=== PATIENT | female | born 1990 | race Caucasian/White ===

== ENCOUNTER → 2021-08-26 | Outpatient (CLI) | payer OTHER, SELFPAY ==
[2021-08-29 22:07] LABS: Chlamydia By Nucleic Acid AMP Negative (Negative)
[2021-08-29 23:07] LABS: Gonococcus By Nucleic Acid AMP Negative (Negative)
== END | disposition home or self-care (01) ==
LOC: LABSPEC 15:20
PROVIDERS: Visit Provider Student in an Organized Health Care Education/Training Program
DX: Z11.3 Encounter for screening for infections with a predominantly sexual mode of transmission (principal)
CPT/HCPCS: 87491; 87591

== ENCOUNTER 2021-09-04 20:19 | Observation (INO) | payer OTHER, SELFPAY ==
[2021-09-04 20:19] VITALS: BMI 23.6
[2021-09-04] MEDS: HYDROmorphone 0.5 MG/0.5 ML SYRINGE IV (20:38)
[2021-09-04] MEDS: Ondansetron 4 MG/2 ML Vial IV (20:38)
[2021-09-04 21:00] VITALS: BP 104/61; BP 105/54; BP 98/76; PULSE 75; PULSE 76; PULSE 78; RESP 18; TEMP 36.9; O2SAT 97
[2021-09-04] MEDS: Famotidine 200 MG/20 ML MDV 20 MG in 0.9% Normal Saline (Pres. free 8 ML 300 MG IV (21:41)
[2021-09-04] MEDS: Lactated Ringers 1,000 ML 125 ML IV (21:41)
[2021-09-04 21:43] LABS: Hematocrit 24.2 % (37-47); Hemoglobin 8.2 g/dL (12.0-15.0)
[2021-09-04 22:15] LABS: International Normalized Ratio 1.2; Partial Thromboplast Time 24.1 Seconds (24.1-36.2); Prothrombin Time (Protime)PT. 14.4 SECONDS (11.7-14.9)
[2021-09-04 22:16] LABS: Fibrinogen 214 mg/dl (203-444)
--- NOTE | 2021-09-04 22:26 | PCM.HP.STD ---
HPI - General General Date of Admission: 09/04/21 HPI Narrative SHENG CASEY, is a 30 F LMP 08/18/21 admitted with rupture hemorrhagia ovarian cyst. She reports sudden onset severe abdominal pain this morning. She went to [facility] and CT and pelvic US suggested a complex right ovarian cyst and moderate free fluid in the pelvis. UPT there was negative. Her Hgb had downtrended from 10.7 to 8.6 over approximately 5 hours and she was sent here for direct admission. Reports pain 10/10, sharp, mildly alleviated with IV pain medication. Pain radiates to her ribs when she lies flat and is worse with movement and deep breathing. Denies prior history of ovarian cysts or bleeding issues. She was scheduled to see Dr. Mariano Lemos tomorrow for IUD removal due to side effects since placement on 08/26/21. [facility] Medical History (Updated 09/04/21 @ 22:[address] Lory Pan MD) Anxiety Back pain due to injury Depression Injury of head and neck Smoker Syncope Home Medications Liletta 09/04/21 [History Last Taken Unknown] Allergy/AdvReac Type Severity Reaction Status Date / Time No Known Allergies Allergy Verified 09/04/21 20:28 Surgical History (Updated 09/04/21 @ 22:[address] Lory Pan MD) Previous section Social History (Updated 09/04/21 @ 22:[address] Lory Pan MD) number of children: 2 Smoking Status: Current every day smoker tobacco type: e-cigarettes Electronic Cigarette Use: with nicotine details: denies substance use type: does not use ROS Constitutional Constitutional: Reports fatigue; Denies headache(s) Cardiovascular Cardiovascular: Denies chest pain, dyspnea, nausea, syncope or vomiting Respiratory/Chest Respiratory/Chest: Reports pain on inspiration; Denies dyspnea Gastrointestinal Gastrointestinal: Reports abdominal pain and bloating; Denies nausea or vomiting Genitourinary Genitourinary: Reports abdominal discomfort and difficulty urinating Neurologic Neurologic: Reports dizziness Vital Signs Vital Signs Vital Signs: 09/04/21 21:00 Temperature 98.4 F Temperature Source Oral Pulse Rate 78 Pulse Rate [Lying] 78 Pulse Rate [Sitting (for 1 minute prior to obtaining)] 75 Pulse Rate [Standing (for 1 minute prior to obtaining)] 76 Respiratory Rate 18 Blood Pressure 104/61 Blood Pressure [Lying] 104/61 Blood Pressure [Sitting (for 1 minute prior to obtaining)] 98/76 Blood Pressure [Standing (for 1 minute prior to obtaining)] 105/54 L Blood Pressure Mean 75 Blood Pressure Mean [Lying] 75 Blood Pressure Mean [Sitting (for 1 minute prior to obtaining)] 83 Blood Pressure Mean [Standing (for 1 minute prior to obtaining)] 71 Blood Pressure Source Monitor Blood Pressure Position Supine Blood Pressure Location Right Arm Pulse Ox 97 Oxygen Delivery Method Room Air Weight Weight: 62.596 kg Body Mass Index (BMI) 23.6 Physical Exam Const alert and oriented x3 Constitutional Narrative: appears uncomfortable HEENT normocephalic Resp normal respiratory effort, normal air movement and clear to auscultation bilaterally Effort and Inspection: pain with movement Cardio regular rate, regular rhythm, S1 normal heart sound, S2 normal heart sound and no murmurs GI GI Narrative: normal to inspection, decreased bowel sounds, + rebounding and guarding tenderness with tenderness and dullness on percussion Extremity no calf tenderness and no pedal edema Neuro oriented x3 and moves all extremities Psych mental status grossly normal and cooperative Results Lab / Micro Data Result Diagrams: 09/04/21 21:30 Labs: Laboratory Results - last 24 hr 09/04/21 21:30: PT 14.4, INR 1.2, APTT 24.1, Fibrinogen 214 09/04/21 21:30: Crossmatch See Detail 09/04/21 21:30: Hgb 8.2 L, Hct 24.2 L Assessment & Plan Assessment/Plan (1) Right ovarian cyst: PLAN: Dfdx complex cyst, hemorrhagic cyst (2) Hemoperitoneum: PLAN: Pain management prn (3) Acute blood loss anemia: PLAN: OSH records reviewed Diastolic orthostasis, low fibrinogen and downtrending H/H T&C Advised diagnostic laparoscopy, evacuation of hemoperitoneum, possible right ovarian cystectomy or RSO. Will plan for IUD removal in OR since patient will miss her appointment tomorrow. Contraceptive counseling performed and she declines tubal sterilization. Procedural r/b/i/a reviewed. Blood transfusion acceptable to patient as indicated Patient given opportunity to ask questions and questions answered to her satisfaction. Proceed with surgery. Charges/Coding Visit Charges OBSV E&M: 25026 Initial observation care L3
[2021-09-04 22:53] VITALS: BMI 23.6
--- NOTE | 2021-09-04 23:18 | NURSING ---
jane in OR given report on pt
[2021-09-04] MEDS: Bupivacaine Mpf 0.5% 30 ML VIAL (23:55)
[2021-09-05] VITALS (9 sets, daily range): BP systolic 97–121; BP diastolic 51–88; PULSE 65–110; RESP 16–18; TEMP 36.6–37.4; O2SAT 96–100
[2021-09-05] MEDS: Lactated Ringers 1,000 ML 125 ML IV ×2 (00:16→03:20)
--- NOTE | 2021-09-05 00:51 | OP.PCM_ITS ---
Problems Associated Problem List Diagnoses (1) Acute blood loss anemia: (2) Hemoperitoneum: (3) Right ovarian cyst: Report of Operation Date of Procedure: 09/05/21 Pre-Operative Diagnosis: 1. Hemorrhagic right ovarian cyst 2. Anemia Post-Operative Diagnosis: 1. Hemorrhagic right ovarian cyst 2. Anemia Surgery/Procedure Performed:: Diagnostic laparoscopy Evacuation of hemoperitoneum Description of Surgical Findings:: normal uterus, bilateral tubes. Endometriosis implant on right ovary. Endometriosis also present in the right and left ovarian fossae. Surgeon: Lory Rushing video network engineer: Oxana Gutierrez Type of Anesthesia: General and Local Anesthesiologist: Bobbi Win Estimated Blood Loss (mL): 700 Fluids Replaced: 1000 ml Description of Procedure: Indications: 30-year-old 3 para 2-0-1-2 admitted with ruptured right hemorrhagic ovarian cyst with hemoperitoneum and downtrending H&H and low fibrinogen. She was advised to proceed with diagnostic laparoscopy with evacuation of hemoperitoneum and possible right ovarian cystectomy, possible RSO. Patient was counseled regarding procedural risks, benefits, indications and alternatives. Informed consent was obtained. Procedure: Patient was brought to the operating room and sinus performed. She is placed in the dorsal supine position and induced under general anesthesia and intubated. She was repositioned into dorsal lithotomy and the arms were tucked at her sides. An examination under anesthesia was performed. The perineum and abdomen were prepped and draped in sterile fashion. Patient was placed into high lithotomy, a Badillo catheter placed and a speculum was placed vaginally. The cervix was grasped at the anterior cervical lip using a single-tooth tenaculum and the uterus sounded to 9 cm. A ZUMI uterine manipulator was placed and secured. The single-tooth tenaculum was removed and the patient was placed into low lithotomy. Attention was turned to the abdomen. Half percent Marcaine was administered at the inferior umbilicus. An 1-1/2 cm incision was made at the inferior umbilicus with a scalpel. Veress needle was introduced with successful hanging drop test and no aspirate. The Veress needle was removed and a 12 mm trocar was introduced under laparoscopic guidance confirming entry into the abdominal cavity. There was abundant hemoperitoneum extending from the pelvis to the liver. Additional half percent Marcaine was injected in the left transverse abdominis plane under laparoscopic guidance. A left lower quadrant incision was made under transillumination and a 5 mm port was placed at the site. The abdomen and pelvis were suctioned and cleared of blood and clot using alternating Trendelenburg and reverse Trendelenburg until the pelvis could be adequately visualized. The right ovary appeared to be hemostatic. Few areas of endometriosis were noted including a small right ovarian implant and bilateral ovarian fossae endometriosis. There was good hemostasis the procedure was complete. The abdomen was desufflated and she was given several deep breaths to further desufflate the abdomen and trochars removed. The umbilical fascia was reapproximated using 0 Vicryl on a UR 6. The skin was reapproximated using a 4- 0 Monocryl by the PRESSURE DISPATCHER under my supervision at both sites. Steri-Strips and OpSite dressing were placed at each incisional wound. The patient was placed into high lithotomy and the uterine manipulator and Badillo catheter were removed. The tenaculum site at the cervix was hemostatic. The patient was placed into dorsal supine, awakened, extubated and will be transferred to the recovery room. Admit VTE Documentation VTE Present on Admission: No VTE Mechan Device Prophylaxis: SCD's and Knee High JARAD Hose VTE Pharm Prophylaxis ordered?: No Reason prophylaxis not ordered:: Treatment Not Indicated
[2021-09-05 01:24] LABS: Absolute Lymphocyte Count 1.86 X10^3/uL (0.83-4.51); Absolute Neutrophil Count 5.3 X10^3/uL (2.0-7.7); Basophil# 0.02 X10^3/uL; Basophil% 0.3 % (0-1); Eosinophil# 0.08 X10^3/uL; Hematocrit 24.8 % (37-47); Hemoglobin 8.4 g/dL (12.0-15.0); Lymphocyte # 1.86 X10^3/ul (0.83-4.51); Lymphocyte % 23.9 % (19-41); Mean Corp Hgb Conc 33.9 g/dL (32-36); Mean Corpuscular Hgb 30.5 pg (27.0-32.0); Mean Corpuscular Volume 90.2 fL (81-99); Mean Platelet Vol. 10.8 fl (6.2-12.0); Monocyte# 0.51 X10^3/uL; Monocyte% 6.6 % (0-10); NRBC Flagged by Analyzer 0 % (0-5); Neutrophil # 5.29 X10^3/uL (2.7-7.7); Neutrophil % 68.1 % (47-70); Platelet Count 181 K/mm3 (150-450); RBC Distribution Width CV 12.7 % (11.6-14.6); RBC Distribution Width SD 41.8 fl (35.1-43.9); Red Blood Count 2.75 M/mm3 (4.2-5.4); White Blood Count 7.8 K/mm3 (4.4-11.0)
[2021-09-05 01:37] LABS: EST Glomerular Filtration Rate 123 mL/min (>60); Est Glom Filt Rate - Afr Amer 148 mL/min (>60); Estimated Creatinine Clearance 117.31 ml/min
[2021-09-05] MEDS: Ketorolac 30 MG/ML Syringe IV ×2 (01:45→10:09)
[2021-09-05] MEDS: HYDROmorphone 0.5 MG/0.5 ML SYRINGE IV ×3 (02:26→06:44)
[2021-09-05] MEDS: 0.9% Saline Lock 10 ML Syringe IV ×3 (04:44→10:09)
--- NOTE | 2021-09-05 07:31 | DCINST_ITS ---
Discharge Instructions Diet Discharge Diet: No restrictions Activity Discharge Activity: Return to Normal Activity and May Shower May resume sexual activity in: - (2- 4 weeks) Lifting Restrictions: 10 lb Dressing / Incision Call your doctor if you observe: Using more than 1 pad per hour, Shortness of breath, Chest pain, Calf discomfort, Uncontrolled pain and - (Persistent or se franklin headache) Suture Line Care: Avoid Pulling/Pushing Remove Dressing in: 4 days Cleanse incision/area with: Soap & Water Follow Up Care Please Follow Up With: Mariano Lemos MD When: 2- 4 weeks Test Results: Test results from this visit will be discussed in further detail at your follow-up appointment, if applicable. Discharge Plan Admission Admit Date/Time: 09/04/21 19:04 Primary Reason for Your Visit: Rupture hemorrhagic cyst, IUD removal Attending Provider: Lory Rushing Instructions Patient Instructions: Anemia, ED Endometriosis Discharge Orders/Prescriptions Prescriptions: New ibuprofen 600 mg tablet 600 mg PO Q8H PRN (Reason: pain) Qty: 30 RF: 0 oxycodone 5 mg capsule 5 mg PO Q6H PRN (Reason: pain) 7 Days Qty: 20 RF: 0 Discontinued Liletta 52 mg implant RF: 0 Disposition Disposition (needs filled in before D/C Order can be placed): Home, Self Care
--- NOTE | 2021-09-05 07:47 | PCM.PN.OB ---
Subjective Subjective Feels better. Pain more manageable. Lightheadedness resolved. OOB and voiding difficulties resolved. Objective Data Objective Data Vital Signs: Vital Signs Temp Pulse Resp BP Pulse Ox 98.1 F 74 16 97/61 99 09/05/21 06:01 09/05/21 06:01 09/05/21 06:01 09/05/21 06:01 09/05/21 06:01 Oxygen Delivery Method Room Air Weight: 62.596 kg Body Mass Index (BMI) 23.6 Intake & Output: Intake and Output for Last 24 Hours 09/03/21 09/04/21 09/05/21 23:59 23:59 23:59 Intake Total 1383.33 / 1383.33 Output Total 400 / 400 Balance 983.33 / 983.33 Lab / Micro Data Result Diagrams: 09/05/21 01:17 09/05/21 01:17 Labs: Laboratory Results - last 24 hr 09/04/21 21:30: PT 14.4, INR 1.2, APTT 24.1, Fibrinogen 214 09/04/21 21:30: Blood Type A POSITIVE, Antibody Screen NEGATIVE, Crossmatch See Detail 09/04/21 21:30: Hgb 8.2 L, Hct 24.2 L 09/05/21 01:17: WBC 7.8, RBC 2.75 L, Hgb 8.4 L, Hct 24.8 L, MCV 90.2, MCH 30.5, MCHC 33.9, RDW Std Deviation 41.8, RDW Coeff of Paula 12.7, Plt Count 181, MPV 10.8, Immature Gran % (Auto) 0.100, Neut % (Auto) 68.1, Lymph % (Auto) 23.9, [place] % (Auto) 6.6, Eos % (Auto) 1.0, Baso % (Auto) 0.3, Absolute Neuts (auto) 5.3, Absolute Lymphs (auto) 1.86, Nucleated RBC % 0 09/05/21 01:17: Creatinine 0.60, Estim Creat Clear Calc 117.31, Est GFR (MDRD) Af Amer 148, Est GFR (MDRD) Non-Af 123 Micro: Microbiology 09/04/21 22:45 Nasal Secretion SARS-CoV-2 Antigen (Rapid) - Final Physical Exam Narrative GEN - NAD, AAO x 3 PULM - normal respiratory rate and rhythm CV - RRR ABD - soft, NT/ND, incisonal dressing c/d/i, bloating resolved EXT - no calf tenderness or LE edema Assessment & Plan (1) Right ovarian cyst: PLAN: Reviewed intraop findings (2) Hemoperitoneum: (3) Acute blood loss anemia: PLAN: f/u am CBC Plan for d/c home later today (4) Endometriosis determined by laparoscopy:
[2021-09-05 07:57] LABS: Absolute Lymphocyte Count 0.54 X10^3/uL (0.83-4.51); Absolute Neutrophil Count 5.5 X10^3/uL (2.0-7.7); Basophil# 0.01 X10^3/uL; Basophil% 0.2 % (0-1); Hematocrit 25.7 % (37-47); Hemoglobin 8.6 g/dL (12.0-15.0); Lymphocyte # 0.54 X10^3/ul (0.83-4.51); Lymphocyte % 8.9 % (19-41); Mean Corp Hgb Conc 33.5 g/dL (32-36); Mean Corpuscular Hgb 30.4 pg (27.0-32.0); Mean Corpuscular Volume 90.8 fL (81-99); Mean Platelet Vol. 10.6 fl (6.2-12.0); Monocyte# 0.05 X10^3/uL; Monocyte% 0.8 % (0-10); NRBC Flagged by Analyzer 0 % (0-5); Neutrophil # 5.48 X10^3/uL (2.7-7.7); Neutrophil % 89.8 % (47-70); POSITIVE DIFFERENTIAL YES; Platelet Count 182 K/mm3 (150-450); RBC Distribution Width CV 12.9 % (11.6-14.6); RBC Distribution Width SD 42.6 fl (35.1-43.9); Red Blood Count 2.83 M/mm3 (4.2-5.4); White Blood Count 6.1 K/mm3 (4.4-11.0)
[2021-09-05 08:06] LABS: Differential Indicated SCAN CRITERIA MET
[2021-09-05 08:34] LABS: Platelet Estimate ADEQUATE (ADEQ); Red Cell Morphology NORM C+C NORMAL (NORM C&C)
[2021-09-05] MEDS: oxyCODONE 5 MG Tablet PO ×2 (09:02→13:28)
[2021-09-05] MEDS: Famotidine 200 MG/20 ML MDV 20 MG in 0.9% Normal Saline (Pres. free 8 ML 300 MG IV (10:09)
--- NOTE | 2021-09-05 10:44 | PN.OBGYN_ITS ---
Subjective Subjective Patient feeling some bloating. Tolerating p.o. Ambulating. Pain controlled. Objective Data Objective Data Vital Signs: Vital Signs Temp Pulse Resp BP Pulse Ox 98.9 F 79 16 105/58 L 99 09/05/21 08:53 09/05/21 08:53 09/05/21 08:53 09/05/21 08:53 09/05/21 08:53 Oxygen Delivery Method Room Air Weight: 62.596 kg Body Mass Index (BMI) 23.6 Intake & Output: Intake and Output for Last 24 Hours 09/03/21 09/04/21 09/05/21 23:59 23:59 23:59 Intake Total 2247.33 / 2247.33 Output Total 400 / 400 Balance 1847.33 / 1847.33 Lab / Micro Data Result Diagrams: 09/05/21 07:45 09/05/21 01:17 Labs: Laboratory Results - last 24 hr 09/04/21 21:30: PT 14.4, INR 1.2, APTT 24.1, Fibrinogen 214 09/04/21 21:30: Blood Type A POSITIVE, Antibody Screen NEGATIVE, Crossmatch See Detail 09/04/21 21:30: Hgb 8.2 L, Hct 24.2 L 09/05/21 01:17: WBC 7.8, RBC 2.75 L, Hgb 8.4 L, Hct 24.8 L, MCV 90.2, MCH 30.5, MCHC 33.9, RDW Std Deviation 41.8, RDW Coeff of Paula 12.7, Plt Count 181, MPV 10.8, Immature Gran % (Auto) 0.100, Neut % (Auto) 68.1, Lymph % (Auto) 23.9, [place] % (Auto) 6.6, Eos % (Auto) 1.0, Baso % (Auto) 0.3, Absolute Neuts (auto) 5.3, Absolute Lymphs (auto) 1.86, Nucleated RBC % 0 09/05/21 01:17: Creatinine 0.60, Estim Creat Clear Calc 117.31, Est GFR (MDRD) Af Amer 148, Est GFR (MDRD) Non-Af 123 09/05/21 07:45: WBC 6.1, RBC 2.83 L, Hgb 8.6 L, Hct 25.7 L, MCV 90.8, MCH 30.4, MCHC 33.5, RDW Std Deviation 42.6, RDW Coeff of Paula 12.9, Plt Count 182, MPV 10.6, Immature Gran % (Auto) 0.300, Neut % (Auto) 89.8 H, Lymph % (Auto) 8.9 L, [place] % (Auto) 0.8, Eos % (Auto) 0.0, Baso % (Auto) 0.2, Absolute Neuts (auto) 5.5, Absolute Lymphs (auto) 0.54 L, Nucleated RBC % 0, Differential Comment , Platelet Estimate ADEQUATE, RBC Morphology NORM C+C Micro: Microbiology 09/04/21 22:45 Nasal Secretion SARS-CoV-2 Antigen (Rapid) - Final Physical Exam Const alert, oriented x3 and no apparent distress HEENT normocephalic Head and Scalp: atraumatic Resp normal respiratory effort Cardio regular rate GI GI Narrative: Soft, mildly tender. Incision dressing clean and dry. Extremity no pedal edema Psych affect normal Assessment & Plan (1) Right ovarian cyst: PLAN: Postop day 1 status post Laparoscopic evacuation of hemoperitoneum. CBC stable today. Iron supplement at home. Pain controlled. Discharge home. F/u 2-4w. (2) Acute blood loss anemia: (3) Endometriosis determined by laparoscopy:
--- NOTE | 2021-09-05 11:43 | PHA.DC.MC ---
Pharmacy Service has performed discharge medication reconciliation and counseling for this patient. 1. FERROUS SULFATE 325MG PO BID 2. IBUPROFEN 600MG PO Q8H PRN PAIN 3. OXYCODONE 5MG PO Q6H PRN PAIN The patient's discharge medication list was reviewed for discrepancies and discrepancies were resolved. Home Medications ferrous sulfate 325 mg PO BID #60 tab 09/05/21 ibuprofen 600 mg PO Q8H PRN #30 tab 09/05/21 oxycodone 5 mg PO Q6H PRN 7 Days #20 cap 09/05/21 The patient was counseled on the following discharge medications and changes in medications for homegoing were reviewed. The Reason for Use, instructions for use, and potential side effects were reviewed for all new medications. The patient's questions regarding all of their medications were answered. The patient was able to verbally demonstrate an understanding of their discharge medications.
== END 2021-09-05 14:30 | disposition home or self-care (01) ==
PROVIDERS: Admitting Provider Obstetrics & Gynecology; Visit Provider Obstetrics & Gynecology
PROC: (CPT 49320; principal; 2021-09-04 23:15)
DX: N83.201 Unspecified ovarian cyst, right side (principal); K66.1 Hemoperitoneum; F17.290 Nicotine dependence, other tobacco product, uncomplicated; D62 Acute posthemorrhagic anemia; Z30.432 Encounter for removal of intrauterine contraceptive device; N80.1 Endometriosis of ovary
CPT/HCPCS: 49320; 58301; 00840; 36415; 82565; 85014; 85018; 85025; 85384; 85610; 85730; 86850; 86900; 86901; 86920; 86922; 87426; 96361; 96374; 96375; 96376; 99218; J7120; A4216; G0378; J2405; J3490

== ENCOUNTER 2023-01-27 14:02 | Emergency (ER) | payer MEDICAID, SELFPAY ==
[2023-01-27 14:03] VITALS: BP 124/80; PULSE 108; RESP 20; TEMP 36.6; O2SAT 100; BMI 24.8
--- NOTE | 2023-01-27 14:15 | CT_ITS ---
STUDY: CT ABDOMEN AND PELVIS WITH CONTRAST REASON FOR EXAM: Female, 32 years old. abdominal pain -- IV PO Contrast RADIATION DOSAGE (If Supplied By Facility): CTDIvol = ( 11.53 ) mGy, DLP = ( 473.57 ) mGycm TECHNIQUE: Transaxial images were obtained from the dome of the diaphragm to the symphysis pubis with oral contrast. Oral and amp; IV Gastrografin and amp; 100mL Isovue-370 was administered. Sagittal and coronal images were reconstructed. Individualized dose optimization techniques were used for this CT. COMPARISON: None. FINDINGS: The visualized lung bases are unremarkable. The visualized portions of the heart are within normal limits. Small amount of ascites primarily in the pelvis but also surrounding the liver. Normal liver. Normal gallbladder and extrahepatic biliary system. Normal spleen. Normal pancreas. Normal bilateral adrenal glands. Normal right kidney. Normal left kidney. Normal visualized stomach. Normal small intestine. Normal colon. The appendix is visualized and appears normal. Normal abdominal aorta. Normal inferior vena cava. Normal retroperitoneum. Normal urinary bladder. Moderate amount of free fluid and stranding of the fat in the pelvis with fluid of increased attenuation suggestive of hemorrhagic or purulent fluid. Correlation with pelvic ultrasound may be useful. Normal abdominal wall. Normal osseous structures. CT/Abdomen/Pelvis WITH Contrast IMPRESSION: Suspect hemorrhagic or purulent fluid in the pelvis and correlation with pelvic ultrasound may be useful. Electronically Signed: Candelario Augustin MD at 16:59 EDT ,
--- NOTE | 2023-01-27 14:16 | EDS_ITS ---
HPI HPI - GI History of Present Illness Chief Complaint: Abd Pain Detail of Chief Complaint: Abdominal pain Informant: patient Narrative Narrative: Patient presents to the emergency room with complaint of abdominal pain that started this morning around 7 AM. Patient states it gradually built up and became more severe. Currently rates it an 8 out of 10. She feels like it starts in her right lower quadrant, radiates towards the center. She denies urinary symptoms. Last bowel movement was this morning when she had a small bowel movement. She does have history of constipation at times. She denies urinary symptoms. She had no fever. She had no vomiting or diarrhea. She denies any blood in her stool or vomit. [facility] Medical History (Updated 01/27/23 @ 19:[address] Nader Lee DO) Anxiety Back pain due to injury Depression Injury of head and neck Smoker Syncope Home Medications ferrous sulfate 325 mg (65 mg iron) tablet 325 mg PO BID #60 tabs 09/05/21 [Rx Last Taken Unknown] ibuprofen 600 mg tablet 600 mg PO Q8H PRN pain #30 tabs 09/05/21 [Rx Last Taken Unknown] oxycodone 5 mg capsule 5 mg PO Q6H PRN pain 7 days #20 caps 09/05/21 [Rx Last Taken Unknown] oxycodone-acetaminophen 5 mg-325 mg tablet 1 tab PO Q6H PRN PRN pain 5 days #20 TABLETS 01/27/23 [Rx Last Taken Unknown] Allergy/AdvReac Type Severity Reaction Status Date / Time No Known Allergies Allergy Verified 01/27/23 14:03 Surgical History Previous section Social History (Updated 09/04/21 @ 22:[address] Lory Pan MD) number of children: 2 Smoking Status: Current every day smoker tobacco type: e-cigarettes Electronic Cigarette Use: with nicotine details: denies substance use type: does not use ROS ROS ED Review of Systems ROS Unobtainable: other Constitutional Constitutional ED: Reports lethargy; Denies chills, fever(s), sweats or weight loss Eyes Eyes: Denies blurry vision, change in vision or diplopia ENT ENT ED: Denies rhinorrhea or sore throat Cardiovascular Cardiovascular: Denies chest pain, orthopnea or racing heartbeat Respiratory/Chest Respiratory/Chest: Denies cough, dyspnea, dyspnea on exertion, orthopnea or sputum Gastrointestinal Gastrointestinal: Reports abdominal pain; Denies diarrhea, nausea or vomiting Genitourinary Genitourinary ED: Denies dysuria, hematuria or urinary frequency Musculoskeletal Musculoskeletal: Denies arthralgias, back pain, myalgias or neck pain Integumentary Denies abscess, Abrasions or rash Neurologic Neurologic: Denies headache(s) or weakness Psychiatric Psychiatric: Denies anxiety, depression or suicidal thoughts Endocrine Endocrinology: Denies polydipsia, polyphagia or polyuria Hematologic/Lymphatic Hematologic/Lymphatic: Denies easy bleeding, easy bruising or lymphadenopathy Allergic/Immunologic Allergic/Immunologic ED: Denies mouth swelling, tongue swelling or urticaria EXAM Physical Exam Const Vital Signs: 01/27/23 14:03 Temperature 97.8 F Temperature Source Temporal Pulse Rate 108 H Respiratory Rate 20 H Blood Pressure 124/80 H Blood Pressure Mean 94 Pulse Ox 100 Oxygen Delivery Method Room Air Positive well nourished and well developed General Appearance ED: well developed and NAD HEENT Reports TM's clear and moist mucous membranes normocephalic and atraumatic; Negative for trauma or tenderness Tympanic Membrane ED: Yes TM's clear Eyes PERRL and EOMs intact bilaterally General Eye ED: Negative for pale conjunctiva or scleral icterus Neck no lymphadenopathy, supple and no JVD General: Negative for tenderness Chest Wall inspection of chest normal and palpation of chest normal Chest: Negative for tenderness Resp normal respiratory effort and clear to auscultation bilaterally Effort and Inspection: Negative for respiratory distress or pain with movement Auscultation: Negative for rhonchi, wheezes or diminished lung sounds Cardio regular rate, regular rhythm, S1 normal heart sound, S2 normal heart sound and no murmurs Peripheral Pulses: pulses 2+ throughout GI normal to inspection, nondistended, normoactive bowel sounds, soft to palpation, non-distended and no masses GI Narrative: Tenderness palpation of the right lower quadrant with guarding. She is got tenderness over the suprapubic region. No rebound, rigidity, or peritoneal signs. No mass palpated. Back/Spine no CVA tenderness and no thoracic nor lumbar tenderness Extremity normal to inspection General Extremety ED: Negative for edema General Extremity: Negative for edema Neuro oriented x3, CN's II-XII intact bilaterally, no sensory deficits noted and gait normal Sensorium / Orientation: awake, alert, oriented to person, oriented to place and oriented to time Motor Exam: strength 5/5 throughout and strength abnormal Psych mental status grossly normal Skin no rashes or lesions noted and no wounds MDM MDM MDM Narrative Medical decision making narrative: Patient presents with abdominal pain progressively worsening. Uncomfortable on exam with diffuse tenderness over the lower abdomen. In the differential would be kidney stone versus UTI or ovarian cyst or ovarian torsion. Appendicitis less likely given relatively sudden onset. She does have history of endometriosis. IV line established. Patient was medicated morphine and Zofran which gave her some mild pain relief but then required more pain medicine and was given milligram of Dilaudid IV. CBC with differential count 7.2 with hemoglobin 10.7 and platelet count of 232. Chemistries unremarkable. Like normal 0.8. LFTs. hCG was negative urinalysis was all. CT can of the pelvis showed mild right amount of fluid within the pelvis which could represent blood or infectious etiology. Clinically I suspect more likely this is hemorrhagic as she has had no fever or vaginal discharge and normal white count. Patient also had a pelvic ultrasound to evaluate further which showed fluid once again and also a 2.8 cm cyst in left ovary which could represent an endometrioma or corpus luteal cyst. Patient continued to complain of pain and was given a second milligram of Dilaudid. She is scheduled to have surgery with endometrial specialist in 5 days at [facility]. I discussed case with that specialist Dr. Chang who recommended opioid therapy and discharged to home as she will not be able to do her surgery sooner if she requested transfer it would only be for pain control and she would be discharged to home with pain medication until she can have her surgery on which is in 5 days. Patient is amenable to trying pain meds for home and I will write her a prescription for Percocet. If her pain persists or worsens then she will go to [facility] as she lives about an hour and a half away but is at [facility] today because patient works in the area. Lab Data Attestation: I reviewed the patient's lab results. Labs: Laboratory Results - last 24 hr 01/27/23 01/27/23 14:20 14:30 WBC 7.2 RBC 3.50 L Hgb 10.7 L Hct 31.3 L MCV 89.4 MCH 30.6 MCHC 34.2 RDW Std Deviation 42.6 RDW Coeff of Paula 13.1 Plt Count 232 MPV 10.7 Immature Gran % (Auto) 0.300 Neut % (Auto) 60.2 Lymph % (Auto) 31.1 [place] % (Auto) 6.7 Eos % (Auto) 1.1 Baso % (Auto) 0.6 Absolute Neuts (auto) 4.4 Absolute Lymphs (auto) 2.24 Nucleated RBC % 0 Sodium 139 Potassium 3.6 Chloride 106 Carbon Dioxide 26.0 Anion Gap 7 BUN 12 Creatinine 0.62 Estim Creat Clear Calc 106.76 Est GFR (MDRD) Af Amer 142 Est GFR (MDRD) Non-Af 117 BUN/Creatinine Ratio 19.3 Glucose 90 Lactic Acid 0.8 Calcium 9.0 Total Bilirubin 0.40 AST 12 L ALT 16 Alkaline Phosphatase 31 L Total Protein 7.2 Albumin 4.3 Globulin 2.9 Albumin/Globulin Ratio 1.5 Serum , Qual NEGATIVE Urine Color Yellow Urine Clarity Clear Urine pH 7.0 Ur Specific [place] 1.005 Urine Protein Negative Urine Glucose (UA) Normal Urine Ketones Negative Urine Occult Blood Negative Urine Nitrite Negative Urine Bilirubin Negative Urine Urobilinogen Normal Ur Leukocyte Esterase Negative Urine RBC 0 SEEN Urine WBC 0 SEEN Ur Squamous Epith Cells 0-5 SEEN Urine Bacteria 0 SEEN Urine Mucus 0 SEEN Radiography Diagnostic Testing: Clinical Impression(s) from Imaging Studies Abdomen/Pelvis CT 01/27/23 14:15 IMPRESSION: Suspect hemorrhagic or purulent fluid in the pelvis and correlation with pelvic ultrasound may be useful. Electronically Signed: Candelario Augustin MD at 16:59 EDT , Discharge Plan Triage Chief Complaint: Abd Pain ED Provider: Nader Lee Dx/Rx/DC Orders Clinical Impression: Hemorrhagic cyst of ovary, Abdominal pain Instructions: ED Ovarian Cyst Prescriptions: New oxycodone-acetaminophen [oxycodone-acetaminophen] 5-325 mg tablet 1 tab PO Q6H PRN PRN (Reason: pain) 5 Days Qty: 20 0RF No Action ibuprofen 600 mg tablet 600 mg PO Q8H PRN (Reason: pain) Qty: 30 0RF oxycodone 5 mg capsule 5 mg PO Q6H PRN (Reason: pain) 7 Days Qty: 20 0RF ferrous sulfate 325 mg (65 mg iron) tablet 325 mg PO BID Qty: 60 0RF Primary Care Provider: Care Physician,No Primary Referrals: Care Physician,No Primary [Primary Care Provider] - Activity Restrictions/Additional Instructions: See your INTRANET SUPPORT and keep your appointment with Dr. Chang Disposition Disposition: Home, Self Care
[2023-01-27 14:32] LABS: Absolute Lymphocyte Count 2.24 X10^3/uL (0.83-4.51); Absolute Neutrophil Count 4.4 X10^3/uL (2.0-7.7); Basophil# 0.04 X10^3/uL; Basophil% 0.6 % (0-1); Eosinophil# 0.08 X10^3/uL; Eosinophils% 1.1 % (0-5); Hematocrit 31.3 % (37-47); Hemoglobin 10.7 g/dL (12.0-15.0); Lymphocyte # 2.24 X10^3/ul (0.83-4.51); Lymphocyte % 31.1 % (19-41); Mean Corp Hgb Conc 34.2 g/dL (32-36); Mean Corpuscular Hgb 30.6 pg (27.0-32.0); Mean Corpuscular Volume 89.4 fL (81-99); Mean Platelet Vol. 10.7 fl (6.2-12.0); Monocyte# 0.48 X10^3/uL; Monocyte% 6.7 % (0-10); NRBC Flagged by Analyzer 0 % (0-5); Neutrophil # 4.35 X10^3/uL (2.7-7.7); Neutrophil % 60.2 % (47-70); Platelet Count 232 K/mm3 (150-450); RBC Distribution Width CV 13.1 % (11.6-14.6); RBC Distribution Width SD 42.6 fl (35.1-43.9); White Blood Count 7.2 K/mm3 (4.4-11.0)
[2023-01-27] MEDS: 0.9% Normal Saline (1000mL) 1,000 ML 125 ML IV (14:35)
[2023-01-27] MEDS: Ondansetron 4 MG/2 ML Vial IV (14:35)
[2023-01-27] MEDS: Morphine 4 MG/ML Syringe IV (14:35)
[2023-01-27 14:38] LABS: Bacteria 0 SEEN /hpf (None Seen); Mucous, Urine 0 SEEN /hpf (<or=2+); Red Blood Cells-Urine 0 SEEN /hpf (0-5); White Blood Cells 0 SEEN /hpf (0-5)
[2023-01-27 14:41] LABS: Internal QC Validated? YES +Cl - CLEAR BKGD; Pregnancy, Serum, hCG Quali. NEGATIVE Negative
[2023-01-27 14:43] LABS: Color, Urine Yellow (Yellow); Glucose, Dipstick Normal (Normal); Ketone-Dipstick Negative (Negative); Leukocyte Esterase-Dipstick Negative /ul (Negative); Nitrite-Dipstick Negative (Negative); Occult Blood-Urine Negative /ul (Negative); Protein-Dipstick Negative (Negative); Specific Gravity, Urine 1.005 (1.002-1.030); Urine Bilirubin Dipstick Negative (Negative); Urine Clarity Clear (Clear); Urine Urobilinogen Normal (Normal)
[2023-01-27 14:49] LABS: ALB/GLOB Ratio 1.5 RATIO (0.9-2.4); AST(SGOT) 12 U/L (15-37); Alanine Aminotransfer ALT/SGPT 16 U/L (13-56); Albumin, Serum 4.3 g/dL (3.2-5.0); Alkaline Phosphatase 31 U/L (45-117); Anion Gap 7 (5-15); BUN 12 mg/dL (7-18); BUN/Creat Ratio 19.3 RATIO (10-20); Chloride 106 mmol/L (98-107); Creatinine, Serum 0.62 mg/dL (0.55-1.02); EST Glomerular Filtration Rate 117 mL/min (>60); Est Glom Filt Rate - Afr Amer 142 mL/min (>60); Estimated Creatinine Clearance 106.76 ml/min; Globulin 2.9 g/dL (2.2-4.2); Glucose 90 mg/dL (74-106); Potassium 3.6 mmol/L (3.5-5.1); Protein, Total 7.2 g/dL (6.4-8.2); Sodium Level 139 mmol/L (136-145)
[2023-01-27 15:13] LABS: Squamous Epithelial Cells - UA 0-5 SEEN /hpf (5-10)
[2023-01-27 15:29] LABS: Lactic Acid 0.8 mmol/L (0.4-1.9)
[2023-01-27] MEDS: HYDROmorphone 1 MG/ML Syringe IV ×2 (16:01→18:54)
--- NOTE | 2023-01-27 16:24 | US_ITS ---
STUDY: ULTRASOUND TRANSVAGINAL CLINICAL: Female, 32 years old. rule out torsion TECHNIQUE: Transvaginal COMPARISON: CT earlier today FINDINGS: Normal uterine size measuring 8.2 x 5.3 x 4.4 cm in maximal craniocaudal dimension. There are no myometrial masses. Normal endometrial thickness measuring 8 mm. There are no endometrial masses, and there is no fluid in the endometrial cavity. Normal uterine cervix. Normal right ovary, measuring 3.6 x 2.7 x 2.9 cm. There are multiple follicles without a dominant cyst. Normal left ovary, measuring 5.3 x 3.9 x 3.1 cm. 2.8 cm oval hyperechoic mass of the left ovary may represent hemorrhagic of the corpus luteum cyst or endometrioma.. There is a moderate amount of echogenic free fluid in the pelvis worrisome for hemorrhagic or purulent fluid.. Polycystic ovary disease: No. US/Transvaginal Non- IMPRESSION: 1. Moderate amount of echogenic free fluid may represent hemorrhagic or purulent fluid. Possibilities include pelvic inflammatory disease, ruptured ovarian cyst, or endometriosis. 2. 2.8 cm echogenic area within the left ovary may represent hemorrhagic corpus luteum cyst or endometrioma. Electronically Signed: Candelario Augustin MD at 18:17 EDT ,
== END 2023-01-27 20:15 | disposition home or self-care (01) ==
PROVIDERS: Emergency Provider Emergency Medicine; Visit Provider Emergency Medicine
DX: N83.209 Unspecified ovarian cyst, unspecified side (principal); R10.9 Unspecified abdominal pain; F17.290 Nicotine dependence, other tobacco product, uncomplicated
CPT/HCPCS: 74177; 76830; 80053; 81001; 83605; 84703; 85025; 93976; 96361; 96374; 96375; 96376; 99283; J7030; Q9967; A4216; J2405

== ENCOUNTER → 2024-03-05 | Outpatient (CLI) | payer MEDICAID, SELFPAY ==
[2024-03-17 16:08] LABS: HPV APTIMA, High Risk Positive (Negative)
== END | disposition home or self-care (01) ==
PROVIDERS: Referring Provider Advanced Practice Midwife; Visit Provider Advanced Practice Midwife
DX: Z12.4 Encounter for screening for malignant neoplasm of cervix (principal)
CPT/HCPCS: 87624; 88175; G0145

== ENCOUNTER → 2024-03-07 | Outpatient (CLI) | payer MEDICAID, SELFPAY ==
--- NOTE | 2024-03-07 14:19 | US_ITS ---
STUDY: ULTRASOUND OF THE FEMALE PELVIS - COMPLETE REASON FOR EXAM: Female, 33 years old. pelvic pain LMP: 02/20/2024 TECHNIQUE: Transabdominal and Transvaginal TECHNICAL QUALITY: Adequate. COMPARISON: 01/27/2023 FINDINGS: The uterus is anteverted and is in a midline position. The uterus measures 8.3 x 6.0 x 4.4 cm. Normal uterine cervix. The endometrium measures 6 mm in thickness, and is hyperechoic. There is no demonstrated endometrial mass. There is no demonstrated myometrial mass. I.U.D. - The patient does not have an I.U.D. Status post right oophorectomy.. The left ovary is visualized. The left ovary measures 4.1 x 2.7 x 3.7 cm cm. There is no left ovarian cyst or ovarian mass. There is no visualized left adnexal mass or complex lesion. There is normal arterial and normal venous vascularity. There is no fluid in the cul-de-sac. The pre void volume of the bladder was ml. The post void volume of the bladder was ml. Polycystic ovary disease: No. US/Pelvic w/ Transvaginal IMPRESSION: Normal female pelvis. Electronically Signed: Candelario Augustin MD at 8:55 EST ,
[2024-03-07 15:28] LABS: Absolute Lymphocyte Count 1.74 X10^3/uL (0.83-4.51); Absolute Neutrophil Count 2.1 X10^3/uL (2.0-7.7); Basophil# 0.03 X10^3/uL; Basophil% 0.7 % (0-1); Eosinophil# 0.08 X10^3/uL; Eosinophils% 1.8 % (0-5); Hematocrit 32.3 % (37-47); Hemoglobin 11.3 g/dL (12.0-15.0); Lymphocyte # 1.74 X10^3/ul (0.83-4.51); Lymphocyte % 40.2 % (19-41); Mean Corpuscular Hgb 30.5 pg (27.0-32.0); Mean Corpuscular Volume 87.1 fL (81-99); Mean Platelet Vol. 10.6 fl (6.2-12.0); Monocyte# 0.37 X10^3/uL; Monocyte% 8.5 % (0-10); NRBC Flagged by Analyzer 0 % (0-5); Neutrophil # 2.09 X10^3/uL (2.7-7.7); Neutrophil % 48.3 % (47-70); Platelet Count 203 K/mm3 (150-450); RBC Distribution Width SD 41.1 fl (35.1-43.9); Red Blood Count 3.71 M/mm3 (4.2-5.4); White Blood Count 4.3 K/mm3 (4.4-11.0)
[2024-03-13 01:06] LABS: Testosterone Free 0.6 pg/mL (0.0-4.2)
== END | disposition home or self-care (01) ==
LOC: US 14:17 → LAB 14:59
PROVIDERS: Referring Provider Advanced Practice Midwife; Visit Provider Advanced Practice Midwife
DX: E28.2 Polycystic ovarian syndrome (principal); R10.2 Pelvic and perineal pain
CPT/HCPCS: 36415; 76830; 76856; 84402; 84443; 85025

== ENCOUNTER 2024-05-09 10:15 | Emergency (ER) | payer OTHER, SELFPAY ==
[2024-05-09 10:15] VITALS: PULSE 121
[2024-05-09 10:16] VITALS: BP 108/89; PULSE 106; RESP 16; TEMP 36.6; O2SAT 94; BMI 24.0
--- NOTE | 2024-05-09 10:33 | CT_ITS ---
EXAM: CT Abdomen and Pelvis With Intravenous Contrast CLINICAL INDICATION: TECHNIQUE: Axial computed tomography images of the abdomen and pelvis with intravenous contrast. This CT exam was performed using one or more of the following dose reduction techniques: automated exposure control, adjustment of the mA and/or kV according to patient size, and/or use of iterative reconstruction technique. COMPARISON: No relevant prior studies available. FINDINGS: LUNG BASES: Unremarkable. No mass. No consolidation. ABDOMEN: LIVER: Hepatomegaly with fatty infiltration. GALLBLADDER AND BILE DUCTS: Unremarkable. No calcified stones. No ductal dilation. PANCREAS: Unremarkable. No mass. No ductal dilation. SPLEEN: Unremarkable. No splenomegaly. ADRENALS: Unremarkable. No mass. KIDNEYS AND URETERS: Unremarkable. No stones within either kidney. No hydronephrosis. STOMACH AND BOWEL: Multiple mildly distended small bowels filled with air-fluid could be mild enteritis. PELVIS: APPENDIX: Normal appendix. BLADDER: Unremarkable. No mass. REPRODUCTIVE: Unremarkable as visualized. ABDOMEN and PELVIS: INTRAPERITONEAL SPACE: Unremarkable. No free air. No significant fluid collection. BONES/JOINTS: No acute fracture. No dislocation. SOFT TISSUES: Umbilical hernia containing fat. VASCULATURE: Unremarkable. No abdominal aortic aneurysm. LYMPH NODES: Unremarkable. No enlarged lymph nodes. CT/Abdomen/Pelvis W IV Cont ONLY IMPRESSION: 1. Normal appendix. 2. Multiple mildly distended small bowels filled with air-fluid could be mild enteritis. 3. Hepatomegaly with fatty infiltration. 4. Umbilical hernia containing fat. 5. No obstructive uropathy. Reading Location: [facility]
--- NOTE | 2024-05-09 10:35 | ED.VIS.GI ---
HPI HPI - GI History of Present Illness Chief Complaint: Abd Pain Informant: patient Abdominal Pain/Flank Pain Onset: Today Context: Gradual Onset Timing: Continuous Quality: Aching and Cramping Location: Diffuse Current Severity: Moderate Maximum Severity: Moderate Worsened by: Nothing Relieved by: Nothing Nausea/Vomiting/Emesis GI Symptom: Positive for Nausea and Vomiting Severity: Mild Diarrhea/Melena/Hematochezia GI Symptom: Positive for Diarrhea Onset: Today Stool Quality: Positive for Loose Severity: Mild Associated Symptoms Associated Symptoms: Negative for Dysuria, Frequency, Hematuria or Urgency Narrative Narrative: 33-year-old female G3, P2 Ab1. 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 Pending hysterectomy this summer. States this morning she woke with lower abdominal pain now that is diffuse with nausea and cramping. She is also had some diarrhea. No dysuria. No vaginal bleeding. Does not believe she is . Prior similar symptoms: No Recent Illness/Hospitalization: No PFSH PFSH Medical History Polycystic bilateral ovaries Back pain due to injury Injury of head and neck Syncope Anxiety Depression Smoker Home Medications ?Medication ?Instructions ?Recorded ?Last Taken ?Type elagolix 200 mg tablet (Orilissa) 200 mg PO BID #60 tabs 03/10/24 Unknown Rx ondansetron 4 mg disintegrating 4 mg PO Q6H PRN nausea and 05/09/24 Unknown Rx tablet vomiting #7 tabs Allergy/AdvReac Type Severity Reaction Status Date / Time No Known Allergies Allergy Verified 05/09/24 10:51 Surgical History Previous section Social History adopted: No household members: spouse and children housing: house number of children: 2 current occupational status: employed 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 pets and animals: Yes pets and animals: cat(s) and dog(s) history of recent travel: No sexually active: Yes Smoking Status: Current every day smoker tobacco type: e-cigarettes Electronic Cigarette Use: with nicotine alcohol intake: current alcohol intake frequency: other details: social substance use type: does not use diet: gluten free well-balanced diet: daily or most days caffeine: Yes Type: coffee Number of servings: 1 eating out: 1-3 times/week during the past year weight has: remained stable what type of physical activity do you participate in: yoga and other details: cardio frequency: 1-2 times per week andreia/nondenominational: None seatbelt use: always do you feel safe at home: Yes additional social history: - Jayden ROS ROS ED ROS Narrative Abdominal pain. Nausea and diarrhea. Constitutional Constitutional ED: Denies chills or fever(s) ENT ENT ED: Denies ear pain Cardiovascular Cardiovascular: Denies chest pain Respiratory/Chest Respiratory/Chest: Denies cough or dyspnea Gastrointestinal Gastrointestinal: Reports abdominal pain, diarrhea and nausea; Denies constipation, melena or vomiting Genitourinary Genitourinary ED: Denies dysuria or hematuria Musculoskeletal Musculoskeletal: Denies arthralgias Integumentary Denies abscess Neurologic Neurologic: Denies headache(s) Psychiatric Psychiatric: Denies anxiety or depression Endocrine Endocrinology: Denies polydipsia Hematologic/Lymphatic Hematologic/Lymphatic: Denies easy bleeding Allergic/Immunologic Allergic/Immunologic ED: Denies mouth swelling EXAM Physical Exam Narrative Exam Narrative: 33-year-old female standing up beside the bed. Vital signs are stable afebrile. No acute distress other than abdominal pain. H EENT exam unremarkable. Moist mucous membranes. Neck nontender. Lungs clear. Heart regular rhythm rate about 105 no murmur. Chest wall ribs nontender. Abdomen soft nondistended normal bowel sounds without peritoneal signs. Diffusely mildly tender. Primarily suprapubically. Moving all 4 extremities. Nontender no edema. Normal range of motion. Normal strength. Back nontender. Neurologically awake alert no focal motor deficits. Const Vital Signs: 05/09/24 10:15 05/09/24 10:16 05/09/24 11:15 Temperature 98 F Temperature Source Temporal Pulse Rate 121 H 106 H 104 H Respiratory Rate 16 16 Blood Pressure 108/89 H 118/70 Blood Pressure Mean 95 86 Pulse Ox 94 99 Oxygen Delivery Method Room Air Room Air 05/09/24 12:14 05/09/24 13:00 Temperature Temperature Source Pulse Rate 90 99 Respiratory Rate 18 Blood Pressure 111/65 115/71 Blood Pressure Mean 76 83 Pulse Ox 99 98 Oxygen Delivery Method Positive well nourished and well developed; Negative for obese, cachectic, contractures or unkempt General Appearance ED: well developed and NAD; Negative for unkempt, cachectic, contractures or pallor Nutritional Appearance: Negative for cachectic or obese HEENT Reports moist mucous membranes normocephalic and atraumatic Eyes PERRL and EOMs intact bilaterally General Eye ED: Negative for pale conjunctiva or scleral icterus Neck no lymphadenopathy, supple and no JVD Resp normal respiratory effort and clear to auscultation bilaterally Effort and Inspection: Negative for respiratory distress Auscultation: Negative for rales, rhonchi or wheezes Cardio regular rhythm, S1 normal heart sound, S2 normal heart sound and no murmurs; Negative for regular rate Rate: tachycardic GI non-distended and no masses; Negative for non-tender Inspection: Negative for abdominal distention Auscultation: normoactive bowel sounds Palpation: soft and tender; Negative for guarding, rigid, hernia, mass or rebound tenderness present Back/Spine no CVA tenderness General Back: Negative for CVA tenderness Cervical Spine: Negative for cervical spine tenderness Thoracic Spine / Upper Back: Negative for thoracic spinal tenderness Lumbar Spine / Lower Back: Negative for lumbar spinal tenderness Extremity full ROM General Extremety ED: Negative for edema or tenderness General Extremity: Negative for edema Neuro CN's II-XII intact bilaterally and moves all extremities Sensorium / Orientation: alert, oriented to person, oriented to place and oriented to time Motor Exam: strength 5/5 throughout Psych mental status grossly normal and thought process normal Appearance: Negative for unkempt Attitude: No agitated Mood & Affect: anxious; Negative for depressed Skin no wounds General Skin Exam: Negative for jaundice or pallor Lesions: no lesions Rashes: no rashes Trauma: Negative for abrasion Nails: Negative for discolored MDM MDM MDM Narrative Medical decision making narrative: 33-year-old female history of ovarian cyst complaining of abdominal and pelvic pain. Due to it being diffuse I will get a CAT scan versus an ultrasound. Should be treated with morphine for pain and Zofran. Repeat exam patient is doing well around noon. She still having some discomfort so we given IV Toradol. We went over her initial blood work which is normal. Awaiting her UA and CAT scan. CAT scan returned and shows bile consistent with a gastroenteritis. No significant otherwise acute abnormality. Repeat exam patient doing well at 1:34 PM. Abdomen benign. Should be discharged to home. We went over all of her lab test and CAT scan. Treated as a viral gastroenteritis. History & Record Review Discussion w/independent historian: Patient Additional record(s) reviewed:: Prior inpatient record, Prior outpatient record, Prior ED visit and Prior labs Lab Data Attestation: I reviewed the patient's lab results. Lab results narrative: CBC shows normal white count 8. H&H 14 and 42. Platelets 229. Chemistries show a gap of 6. BUN is 17 creatinine 0.6. Glucose 94. Liver enzymes are unremarkable. Lipase is 23. Serum test is negative. UA negative. Labs: Laboratory Results - last 24 hr 05/09/24 05/09/24 10:57 11:59 WBC 8.4 RBC 4.80 Hgb 14.4 Hct 42.5 MCV 88.5 MCH 30.0 MCHC 33.9 RDW Std Deviation 40.8 RDW Coeff of Paula 12.5 Plt Count 229 MPV 10.8 Immature Gran % (Auto) 0.500 Neut % (Auto) 90.5 H Lymph % (Auto) 2.9 L [place] % (Auto) 4.9 Eos % (Auto) 1.0 Baso % (Auto) 0.2 Absolute Neuts (auto) 7.6 Absolute Lymphs (auto) 0.24 L Nucleated RBC % 0 Sodium 143 Potassium 3.8 Chloride 112 H Carbon Dioxide 25.0 Anion Gap 6 BUN 17 Creatinine 0.68 Estim Creat Clear Calc 96.43 Est GFR (MDRD) Af Amer 126 Est GFR (MDRD) Non-Af 104 BUN/Creatinine Ratio 24.9 H Glucose 94 Calcium 9.2 Total Bilirubin 0.40 AST 14 L ALT 20 Alkaline Phosphatase 38 L Total Protein 8.1 Albumin 4.3 Globulin 3.8 Albumin/Globulin Ratio 1.1 Lipase 23 L Serum , Qual NEGATIVE Urine Color Yellow Urine Clarity Clear Urine pH 5.0 Ur Specific [place] 1.010 Urine Protein 30 H Urine Glucose (UA) Normal Urine Ketones Negative Urine Occult Blood 10 H Urine Nitrite Negative Urine Bilirubin Negative Urine Urobilinogen Normal Ur Leukocyte Esterase 100 H Urine WBC 0-5 SEEN Ur Squamous Epith Cells 0-5 SEEN Urine Bacteria 0 SEEN Urine Mucus 0 SEEN Radiography Diagnostic Testing: Clinical Impression(s) from Imaging Studies Abdomen/Pelvis CT 05/09/24 10:33 IMPRESSION: 1. Normal appendix. 2. Multiple mildly distended small bowels filled with air-fluid could be mild enteritis. 3. Hepatomegaly with fatty infiltration. 4. Umbilical hernia containing fat. 5. No obstructive uropathy. Reading Location: [facility] Discharge Plan Triage Chief Complaint: Abd Pain ED Provider: Jose M Boles Dx/Rx/DC Orders Clinical Impression: Abdominal pain, Viral gastroenteritis, History of ovarian cyst Instructions: ED Gastroenteritis, Viral (Adult) Prescriptions: New ondansetron 4 mg tablet,disintegrating 4 mg PO Q6H PRN (Reason: nausea and vomiting) Qty: 7 0RF No Action Orilissa 200 mg tablet 200 mg PO BID Qty: 60 3RF Primary Care Provider: Liat Bourgeois Obioma Referrals: Care Physician,No Primary [Non-Staff] - Activity Restrictions/Additional Instructions: Zofran as needed for nausea. Plenty of fluids and rest. Water, 7-Up and Gatorade increase your diet as tolerated. Your labs and CAT scan look good. Most likely secondary to viral gastroenteritis. Print Language: Armenian Disposition Disposition: Home, Self Care
[2024-05-09] MEDS: 0.9% Normal Saline (1000mL) 1,000 ML 999 ML IV (10:56)
[2024-05-09] MEDS: morphine 8 MG/ML Syringe 6 MG IV ×2 (10:56→13:50)
[2024-05-09] MEDS: Ondansetron 4 MG/2 ML Vial IV (10:56)
[2024-05-09 11:06] LABS: Absolute Lymphocyte Count 0.24 X10^3/uL (0.83-4.51); Absolute Neutrophil Count 7.6 X10^3/uL (2.0-7.7); Basophil# 0.02 X10^3/uL; Basophil% 0.2 % (0-1); Eosinophil# 0.08 X10^3/uL; Hematocrit 42.5 % (37-47); Hemoglobin 14.4 g/dL (12.0-15.0); Lymphocyte # 0.24 X10^3/ul (0.83-4.51); Lymphocyte % 2.9 % (19-41); Mean Corp Hgb Conc 33.9 g/dL (32-36); Mean Corpuscular Volume 88.5 fL (81-99); Mean Platelet Vol. 10.8 fl (6.2-12.0); Monocyte# 0.41 X10^3/uL; Monocyte% 4.9 % (0-10); NRBC Flagged by Analyzer 0 % (0-5); Neutrophil # 7.62 X10^3/uL (2.7-7.7); Neutrophil % 90.5 % (47-70); POSITIVE DIFFERENTIAL YES; Platelet Count 229 K/mm3 (150-450); RBC Distribution Width CV 12.5 % (11.6-14.6); RBC Distribution Width SD 40.8 fl (35.1-43.9); White Blood Count 8.4 K/mm3 (4.4-11.0)
[2024-05-09 11:15] VITALS: BP 118/70; PULSE 104; RESP 16; O2SAT 99
[2024-05-09 11:15] LABS: Internal QC Validated? YES +Cl - CLEAR BKGD; Pregnancy, Serum, hCG Quali. NEGATIVE Negative
[2024-05-09 11:20] LABS: ALB/GLOB Ratio 1.1 RATIO (0.9-2.4); AST(SGOT) 14 U/L (15-37); Alanine Aminotransfer ALT/SGPT 20 U/L (13-56); Albumin, Serum 4.3 g/dL (3.2-5.0); Alkaline Phosphatase 38 U/L (45-117); Anion Gap 6 (5-15); BUN 17 mg/dL (7-18); BUN/Creat Ratio 24.9 RATIO (10-20); Calcium,Total 9.2 mg/dL (8.5-10.1); Chloride 112 mmol/L (98-107); Creatinine, Serum 0.68 mg/dL (0.55-1.02); EST Glomerular Filtration Rate 104 mL/min (>60); Est Glom Filt Rate - Afr Amer 126 mL/min (>60); Estimated Creatinine Clearance 96.43 ml/min; Globulin 3.8 g/dL (2.2-4.2); Glucose 94 mg/dL (74-106); Lipase 23 U/L (73-393); Potassium 3.8 mmol/L (3.5-5.1); Protein, Total 8.1 g/dL (6.4-8.2); Sodium Level 143 mmol/L (136-145)
[2024-05-09 12:14] VITALS: BP 111/65; PULSE 90; RESP 18; O2SAT 99
[2024-05-09] MEDS: Ketorolac 30 MG/ML Syringe IV (12:18)
[2024-05-09 12:46] LABS: Bacteria 0 SEEN /hpf (None Seen); Mucous, Urine 0 SEEN /hpf (<or=2+)
[2024-05-09 13:00] VITALS: BP 115/71; PULSE 99; O2SAT 98
[2024-05-09 13:10] LABS: Color, Urine Yellow (Yellow); Glucose, Dipstick Normal (Normal); Ketone-Dipstick Negative (Negative); Leukocyte Esterase-Dipstick 100 /ul (Negative); Nitrite-Dipstick Negative (Negative); Occult Blood-Urine 10 /ul (Negative); Protein-Dipstick 30 mg/dl (Negative); Urine Bilirubin Dipstick Negative (Negative); Urine Clarity Clear (Clear); Urine Urobilinogen Normal (Normal)
[2024-05-09 13:21] LABS: Squamous Epithelial Cells - UA 0-5 SEEN /hpf (5-10); White Blood Cells 0-5 SEEN /hpf (0-5)
[2024-05-09 14:33] LABS: Red Blood Cells-Urine 0 SEEN /hpf (0-5)
== END 2024-05-09 13:58 | disposition home or self-care (01) ==
PROVIDERS: Emergency Provider Emergency Medicine; Visit Provider Emergency Medicine
DX: A08.4 Viral intestinal infection, unspecified (principal); E28.2 Polycystic ovarian syndrome; F17.290 Nicotine dependence, other tobacco product, uncomplicated
CPT/HCPCS: 74177; 80053; 81001; 83690; 84703; 85025; 96361; 96374; 96375; 96376; 99283; Q9967; A4216; J2405